=== PATIENT | female | born 1990 | race American Indian/Alaskan Native ===

== ENCOUNTER 2018-09-10 11:18 | Outpatient (CLI) | payer MEDICAID ==
[2018-09-10 12:46] VITALS: BP 135/79
[2018-09-10] MEDS ORDERED: LACTATED RINGERS 500 ML IV ONE (12:59)
[2018-09-10 13:27] LABS: Bacteria,Urine 2+ /HPF (Negative); Bilirubin,Urine NEG (Negative); Blood,Urine NEG (Negative); Color,Urine Amber (Yellow); Mucus,Urine 3+ /HPF; Urobilinogen,Urine < 2.0 mg/dL (<2.0)
[2018-09-10] MEDS ORDERED: ZOFRAN IV ONE (14:44)
== END 2018-09-10 15:31 | disposition home or self-care (01) ==
LOC: EDSTATUS 11:38 → TRG 11:48
PROVIDERS: ATTEND Obstetrics & Gynecology
DX: O36.8120 Decreased fetal movements, second trimester, not applicable or unspecified (principal); O47.02 False labor before 37 completed weeks of gestation, second trimester; O09.212 Supervision of pregnancy with history of pre-term labor, second trimester; O99.512 Diseases of the respiratory system complicating pregnancy, second trimester; J45.909 Unspecified asthma, uncomplicated; O99.342 Other mental disorders complicating pregnancy, second trimester; Z3A.20 20 weeks gestation of pregnancy
CPT/HCPCS: 59025; 81001; 96374; J2405; J7120; 96361; 96365

== ENCOUNTER 2018-11-22 12:09 | Outpatient (CLI) | payer MEDICAID ==
[2018-11-22] MEDS ORDERED: CELESTONE SOLUSPAN IM SCH (13:00)
[2018-11-22 13:11] LABS: Bacteria,Urine 1+ /HPF (Negative); Bilirubin,Urine NEG (Negative); Blood,Urine NEG (Negative); Color,Urine Yellow (Yellow); Mucus,Urine 2+ /HPF; Protein,Urine <15 mg/dL mg/dL (Negative); Urobilinogen,Urine < 2.0 mg/dL (<2.0)
[2018-11-22 13:25] LABS: Hematocrit 38.5 % (30.3-42.9); Hemoglobin 12.9 gm/dl (10.1-14.3); Mean Corpuscular HGB Conc 33 % (30-34); Mean Corpuscular Volume 88 fl (79-97); Platelet Count 244 K/mm3 (140-440); Red Blood Count 4.37 M/mm3 (3.65-5.03); Red Cell Distribution Width 13.4 % (13.2-15.2)
[2018-11-22 13:41] LABS: Uric Acid 3.1 mg/dL (3.5-7.6)
[2018-11-22 13:58] LABS: Alanine Aminotransferase < 5 units/L (7-56)
[2018-11-22 14:44] VITALS: BP 153/89
== END 2018-11-22 15:15 | disposition home or self-care (01) ==
LOC: TRG 12:09
PROVIDERS: ATTEND Obstetrics & Gynecology
DX: O47.03 False labor before 37 completed weeks of gestation, third trimester (principal); O09.213 Supervision of pregnancy with history of pre-term labor, third trimester; O99.513 Diseases of the respiratory system complicating pregnancy, third trimester; J45.909 Unspecified asthma, uncomplicated; Z3A.30 30 weeks gestation of pregnancy
CPT/HCPCS: 36415; 59025; 81001; 82565; 83615; 84450; 84460; 84550; 85027; 96372; J0702

== ENCOUNTER 2019-01-10 11:37 | Inpatient (IN) | payer MEDICAID ==
[2019-01-10] MEDS ORDERED: TERBUTALINE 1 MG/1 ML INJ SUB-Q PRN (13:02)
[2019-01-10] MEDS ORDERED: BUTORPHANOL 2 MG/1 ML INJ IV PRN (13:02)
[2019-01-10] MEDS ORDERED: ePHEDrine SULFATE 50 MG/1 ML INJ IV PRN (13:02)
[2019-01-10] MEDS ORDERED: MINERAL OIL 30 ML ORAL LIQD PO PRN (13:02)
[2019-01-10] MEDS ORDERED: LIDOCAINE (2%) 20 MG/1 ML VIAL 20 ML MDV INFILTRATI ONE (13:02)
[2019-01-10] MEDS ORDERED: DINOPROSTONE 10 MG VAG SUPP VG ONE (13:02)
[2019-01-10] MEDS ORDERED: TERBUTALINE 1 MG/1 ML INJ IVP PRN (13:02)
[2019-01-10 13:26] LABS: Hematocrit 38.7 % (30.3-42.9); Hemoglobin 12.9 gm/dl (10.1-14.3); Mean Corpuscular HGB Conc 33 % (30-34); Mean Corpuscular Volume 89 fl (79-97); Platelet Count 246 K/mm3 (140-440); Red Blood Count 4.35 M/mm3 (3.65-5.03); Red Cell Distribution Width 14.2 % (13.2-15.2)
--- NOTE | 2019-01-10 13:56 | History and Physical Report ---
History of Present Illness Date of examination: 01/10/19 Date of admission: 01/10/19 Chief complaint: IOL for elevated BP History of present illness: This is a 28 yo EDC 01/27/19 at 37 weeks here for IOL recommended by [facility] for IOL on Nov but patient had logistic problems with kids. She came for appt at clinic and was noted to have elevated BP. She has no sx of pree. She has been followed by [facility] for abnormal quad, hx of PTC s/p BMZ in October. She has been incarcerated in this . She was treated with azithro for chlamydia TOV Oct neg. HX of asthma, hx of hsv on valtrex no outbreaks Past History Past Medical History: asthma Past Surgical History: no surgical history REGISTERED DIETITIAN History: chlamydia Family/Genetic History: none Social history: single. denies: smoking, alcohol abuse, prescription drug abuse - Obstetrical History Expected Date of Delivery: 01/27/19 Actual Gestation: 37 Week(s) 4 Day(s) : 5 Para: 3 Hx # Term Pregnancies: 3 Number of Pregnancies: 1 Spontaneous Abortions: 0 Induced : 0 Number of Living Children: 4 Medications and Allergies Allergies Allergy/AdvReac Type Severity Reaction Status Date / Time No Known Allergies Allergy Unverified 09/10/18 12:55 Home Medications Medication Instructions Recorded Confirmed Last Taken Type Multivitamin Tablet 1 tab PO DAILY 01/10/19 01/10/19 01/10/19 08:00 History Procardia 10 mg PO Q8HR 01/10/19 01/10/19 01/10/19 08:00 History Valtrex 500 tab PO BID 01/10/19 01/10/19 01/09/19 22:00 History Active Meds: Active Medications Butorphanol Tartrate (Stadol) 2 mg IV Q2H PRN PRN Reason: Pain , Severe (7-10) Ephedrine Sulfate (Ephedrine Sulfate) 10 mg IV Q2M PRN PRN Reason: Hypotension Fentanyl (Sublimaze) 100 mcg IV Q2H PRN PRN Reason: Labor Pain Oxytocin/Sodium Chloride (Pitocin/Ns 20 Unit/1000ml Drip) 20 units in 1,000 mls @ 125 mls/hr IV DIRECT AMIRA Oxytocin/Sodium Chloride (Pitocin/Ns 30 Unit/500ml) 30 units in 500 mls @ 1 mls/hr IV TITR AMIRA; Protocol Oxytocin/Sodium Chloride (Pitocin/Ns 30 Unit/500ml) 30 units in 500 mls @ 2 mls/hr IV TITR AMIRA; Protocol Lactated Ringer's (Lactated Ringers) 1,000 mls @ 125 mls/hr IV DIRECT AMIRA Mineral Oil (Mineral Oil) 30 ml PO QHS PRN PRN Reason: Constipation Terbutaline Sulfate (Brethine) 0.25 mg SUB-Q ONCE PRN PRN Reason: Hyperstimulation/Hypertonicity Terbutaline Sulfate (Brethine) 0.25 mg IVP ONCE PRN PRN Reason: Hyperstimulation/Hypertonicity Review of Systems All systems: negative - Vital Signs Vital signs: Vital Signs Pulse BP 83 142/101 01/10/19 12:24 01/10/19 12:24 Temp Pulse Resp BP Pulse Ox 81 142/96 01/10/19 12:25 01/10/19 12:25 - Physical Exam Breasts: Positive: normal Cardiovascular: Regular rate, Normal S1 Lungs: Positive: Clear to auscultation, Normal air movement Abdomen: Positive: normal appearance, soft, normal bowel sounds. Negative: distention, tenderness, guarding Genitourinary (Female): Positive: normal external genitalia, normal perenium Vagina: Positive: normal moisture Uterus: Positive: normal size, normal contour Anus/Rectum: Positive: normal perianal skin Extremities: Positive: normal Deep Tendon Reflex Grade: Normal +2 - Obstetrical FHR: category 1 Cervical Dilatation: 1 Cervical Effacement Percentage: 50 station: -3 Uterine Contraction Pattern: Irregular Uterine Tone Measurement Phase: Resting Results Result Diagrams: 01/10/19 12:50 Abnormal lab results 01/10/19 Range/Units 12:50 WBC 11.1 H (4.5-11.0) K/mm3 All other labs normal. Assessment and Plan A/P IUP 37+4 weeks IOL for elevated BP recommneded per High risk IVF, labs ( [facility]H) will start with cervidil for cervical ripening. GBS neg expect vaginal delivery
[2019-01-10] MEDS ORDERED: OXYTOCIN 20 UNIT/1000ML DRIP 20 UNITS/1,000 ML BAG IV SCH (14:00)
[2019-01-10] MEDS ORDERED: OXYTOCIN DRIP 30 UNITS/500 ML BAG IV SCH ×2 (14:00)
[2019-01-10 15:42] LABS: Bilirubin,Urine NEG (Negative); Blood,Urine NEG (Negative); Color,Urine Yellow (Yellow); Mucus,Urine FEW /HPF; Urobilinogen,Urine < 2.0 mg/dL (<2.0)
[2019-01-10 15:56] LABS: Alanine Aminotransferase 15 units/L (7-56)
[2019-01-10] MEDS: LACTATED RINGERS 1,000 ML IV SCH ×2 (19:54→23:42)
[2019-01-10] MEDS: fentaNYL 100 MCG/2 ML INJ IV PRN (19:54)
[2019-01-11] MEDS ORDERED: ONDANSETRON 4 MG/2 ML INJ IV PRN ×2 (04:20→20:40)
[2019-01-11] MEDS: fentaNYL 100 MCG/2 ML INJ IV PRN (04:54)
--- NOTE | 2019-01-11 08:04 | Event Note ---
Date: 01/11/19 Pt uncomfortable with contractions. Category II tracing. SVE: 380/-3. Begin pitocin augmentation. Pt desires epidural. Blood pressures remain in mild range. Continue routine intrapartum care.
[2019-01-11] MEDS ORDERED: ePHEDrine SULFATE 50 MG/1 ML INJ IV PRN ×2 (10:00→10:44)
[2019-01-11] MEDS ORDERED: BUPIVACAINE/PF (0.25%) 2.5 MG/ML 10 ML VIAL INFILTRATI ONE (10:10)
[2019-01-11] MEDS ORDERED: NALOXONE 2 MG/2 ML INJ IV PRN (10:44)
--- NOTE | 2019-01-11 10:44 | Anesthesia Consultation ---
Anesthesia Consult and Med Hx Date of service: 01/11/19 - Airway Anesthetic Teeth Evaluation: Good ROM Head & Neck: Adequate Mental/Hyoid Distance: Adequate Mallampati Class: Class II Intubation Access Assessment: Good - Pulmonary Exam CTA: Yes - Cardiac Exam Cardiac Exam: RRR - Pre-Operative Health Status ASA Pre-Surgery Classification: ASA2, Emergency Proposed Anesthetic Plan: Epidural - Pulmonary Hx Asthma: Yes COPD: No Hx Pneumonia: No - Cardiovascular System Hx Hypertension: Yes (PIH) - Central Nervous System Hx Seizures: No Hx Psychiatric Problems: Yes (Bipolar no meds since preg.) - Endocrine Hx Renal Disease: No Hx End Stage Renal Disease: No Hx Hypothyroidism: No Hx Hyperthyroidism: No - Hematic Hx Anemia: No Hx Sickle Cell Disease: No - Other Systems Hx Alcohol Use: No
[2019-01-11] MEDS: LACTATED RINGERS 1,000 ML IV SCH ×2 (10:52→21:08)
[2019-01-11] MEDS ORDERED: fentaNYL-BUPIV 2 MCG/ML-0.125% 200 MCG/100 ML BAG EPIDURAL SCH (11:00)
--- NOTE | 2019-01-11 12:33 | Event Note ---
Date: 01/11/19 Pt comfortable with epidural. Category II tracing. SVE: /-1. AROM- copious clear then blood tinged fluid. IUPC placed without difficulty. FSE placed without difficulty. Routine intrapartum care.
[2019-01-11] MEDS ORDERED: miSOPROStol 200 MCG TAB ONE (13:08)
--- NOTE | 2019-01-11 13:35 | Procedure Note ---
OB Delivery Note - Delivery Date of Delivery: 01/11/19 Surgeon: KAM FARFAN Estimated blood loss: other (600 mL) - Vaginal Delivery presentation: vertex Delivery position: OA Intrapartum events: PROM->1hr before delivery, gestational hypertension, decreased FHT variability, mult.variable deceleratio, uterine atony Delivery induction: cervidil Delivery augmentation: rupture of membranes, pitocin Delivery monitor: internal FHT, internal uterine Route of delivery: Delivery placenta: spontaneous Delivery cord: 3 umbilical vessels Episiotomy: none Delivery laceration: none Anesthesia: epidural Delivery comments: Pt progressed to complete/complete/+2 and pushed to deliver a viable female over intact perineum via under epidural anesthesia. Head delivered in THOMAS position, quickly followed by shoulders and body. bulb suctioned at delivery and placed on maternal abdomen. Delayed cord clamp. Cord clamped and cut. Cord blood collected. Placenta delivered spontaneously (3VC,intact). Vagina and perineum explored. No lacerations noted. Uterus atonic despite pitocin infusing. Misoprostol 800 mcg per rectum. Moderate clots expressed from vaginal vault. EBL 600 mL. - Infant A at 1 minute: 8 at 5 minutes: 9 Infant Gender: Female (2506g (5lb 8oz) @ 1245 pm)
[2019-01-11] MEDS ORDERED: LACTATED RINGERS 1,000 ML IV SCH (20:00)
[2019-01-11] MEDS ORDERED: MAGNESIUM SULFATE 40GM/1000ML 40 GM/1,000 ML BAG IV SCH (20:30)
[2019-01-11] MEDS ORDERED: MAGNESIUM SULFATE 4 GM/100 ML BAG IV ONE (20:30)
[2019-01-11] MEDS ORDERED: MAGNESIUM HYDROXIDE (MOM) ORAL LIQD UDC PO PRN (20:40)
[2019-01-11] MEDS ORDERED: hydrALAZINE 20 MG/1 ML INJ IV PRN (20:40)
[2019-01-11] MEDS ORDERED: diphenhydrAMINE 25 MG CAP PO PRN (20:40)
[2019-01-11] MEDS ORDERED: PROMETHAZINE 25 MG TAB PO PRN (20:40)
[2019-01-11] MEDS ORDERED: WITCH HAZEL/ GLYCERIN PAD TP PRN (20:40)
[2019-01-11] MEDS ORDERED: ACETAMINOPHEN 325 MG TAB PO PRN (20:40)
[2019-01-11] MEDS ORDERED: HYDROcodone/ACETAMINOPHEN 5-325 MG TAB PO PRN (20:40)
[2019-01-11] MEDS ORDERED: PROMETHAZINE 25 MG RECT SUPP PR PRN (20:40)
[2019-01-11] MEDS ORDERED: CALCIUM GLUCONATE 1000 MG/10 ML INJ IV ONE (20:40)
[2019-01-11] MEDS ORDERED: BENZOCAINE/MENTHOL 20/0.5% TOP SPRAY 56 GM TP PRN (20:40)
[2019-01-11] MEDS ORDERED: LANOLIN/ZINC/DIMETHICONE (LANSINOH) 7 GM TP PRN ×2 (20:40)
--- NOTE | 2019-01-11 20:49 | Event Note ---
Date: 01/11/19 Pt's blood pressures moving into severe range with systolic BP over 160 on multiple occasions. Begin magnesium sulfate for seizure prophylaxis. Continue to monitor clinically.
[2019-01-11] MEDS ORDERED: OXYTOCIN 20 UNIT/1000ML DRIP 20 UNITS/1,000 ML BAG IV SCH (21:00)
[2019-01-11] MEDS: IBUPROFEN 800 MG TAB PO SCH (21:06)
--- NOTE | 2019-01-12 04:56 | Post Anesthesia Evaluation ---
- Post Anesthesia Evaluation Patient Participated: Yes Airway Patent: Yes Stable Respiratory Function: Yes Nausea/Vomiting: No Temp > 96.8F: Yes Pain Manageable: Yes Adequeate Hydration: Yes Anesthesia Complications: No Block Receding Appropriately: Yes Patient on Ventilator: No
[2019-01-12] MEDS ORDERED: TETANUS,DIPH,PERTUSS(ACELL) VACCINE 0.5 ML SYRINGE IM ONE (06:00)
[2019-01-12 07:06] LABS: Hematocrit 36.3 % (30.3-42.9); Hemoglobin 12.1 gm/dl (10.1-14.3); Mean Corpuscular HGB Conc 33 % (30-34); Mean Corpuscular Volume 90 fl (79-97); Red Blood Count 4.04 M/mm3 (3.65-5.03)
[2019-01-12 08:21] LABS: Platelet Count 231 K/mm3 (140-440)
--- NOTE | 2019-01-12 08:21 | Progress Note ---
Assessment and Plan PPD1 s/p Preeclampsia, on Magnesium sulfate Desires to breast feed and room with baby. Coordinate with [facility] team Anticipate d/c to home on PPD3 Subjective - Subjective Date of service: 01/12/19 Principal diagnosis: s/p Interval history: Pt is PPD1 s/p and preeclampsia Patient reports: appetite normal, pain well controlled [place]: bottle feeding (monitoring by [facility] team due to maternal drowsiness overnight. Stable.) Objective - Vital Signs Latest vital signs: Vital Signs Temp Pulse Resp BP BP Pulse Ox 01/12/19 08:14 81 97 01/12/19 08:09 83 97 01/12/19 08:04 76 98 01/12/19 07:59 84 97 01/12/19 07:54 81 97 01/12/19 07:53 97.9 F 85 18 133/82 133/82 97 01/12/19 07:50 72 153/107 01/12/19 07:49 95 H 99 01/12/19 07:48 76 83 L 01/12/19 07:44 88 100 01/12/19 07:39 86 98 01/12/19 07:34 70 100 01/12/19 07:29 78 99 01/12/19 07:24 76 99 01/12/19 07:19 75 100 01/12/19 07:14 74 99 01/12/19 07:09 82 99 01/12/19 07:04 79 99 01/12/19 06:59 79 98 01/12/19 06:54 88 99 01/12/19 06:53 82 177/111 01/12/19 06:33 74 99 01/12/19 06:28 78 100 01/12/19 06:23 83 100 01/12/19 06:18 78 99 01/12/19 06:13 78 100 01/12/19 06:11 72 135/96 01/12/19 06:08 80 100 01/12/19 06:03 92 H 99 01/12/19 05:58 95 H 100 01/12/19 05:53 77 100 01/12/19 05:48 77 100 01/12/19 05:43 85 100 01/12/19 05:42 80 138/93 01/12/19 05:38 79 99 01/12/19 05:33 87 98 01/12/19 05:28 87 98 01/12/19 05:23 90 98 01/12/19 05:18 87 99 01/12/19 05:13 85 99 01/12/19 05:11 75 136/92 01/12/19 05:08 72 100 01/12/19 05:03 75 96 01/12/19 05:00 94 H 90 01/12/19 04:58 77 100 01/12/19 04:53 79 100 01/12/19 04:48 102 H 100 01/12/19 04:43 69 99 01/12/19 04:41 75 166/103 01/12/19 04:38 70 99 01/12/19 04:33 64 99 01/12/19 04:28 73 98 01/12/19 04:23 73 99 01/12/19 04:18 75 100 01/12/19 04:13 76 99 01/12/19 04:11 75 129/76 01/12/19 04:08 70 100 01/12/19 04:03 77 100 01/12/19 04:00 98 F 01/12/19 03:58 71 98 01/12/19 03:53 71 99 01/12/19 03:48 66 99 01/12/19 03:43 65 99 01/12/19 03:41 75 147/80 01/12/19 03:38 67 99 01/12/19 03:33 82 100 01/12/19 03:28 69 99 01/12/19 03:23 69 100 01/12/19 03:18 68 100 01/12/19 03:13 71 99 01/12/19 03:11 66 128/80 01/12/19 03:08 68 100 01/12/19 03:03 69 100 01/12/19 02:58 68 98 01/12/19 02:53 75 99 01/12/19 02:48 72 99 01/12/19 02:43 85 100 01/12/19 02:41 85 157/97 01/12/19 02:38 76 100 01/12/19 02:33 73 100 01/12/19 02:28 78 98 01/12/19 02:23 77 100 01/12/19 02:18 72 99 01/12/19 02:13 70 99 01/12/19 02:11 65 136/88 11/13/19 02:08 84 98 01/12/19 02:03 72 100 01/12/19 01:58 78 100 01/12/19 01:53 69 99 01/12/19 01:48 82 97 01/12/19 01:43 76 99 01/12/19 01:41 71 148/97 01/12/19 01:38 73 98 01/12/19 01:33 73 99 01/12/19 01:28 68 98 01/12/19 01:23 76 99 01/12/19 01:18 69 98 01/12/19 01:13 71 99 01/12/19 01:11 76 157/97 01/12/19 01:08 68 99 01/12/19 01:03 74 97 01/12/19 00:58 68 98 01/12/19 00:53 72 98 01/12/19 00:48 73 98 01/12/19 00:43 82 100 01/12/19 00:41 76 134/77 01/12/19 00:38 75 98 01/12/19 00:33 75 99 01/12/19 00:28 78 100 01/12/19 00:27 92 H 91 01/12/19 00:23 84 100 01/12/19 00:18 74 99 01/12/19 00:13 81 100 01/12/19 00:10 74 134/84 89 01/12/19 00:08 79 99 01/12/19 00:03 79 98 01/11/19 23:58 74 99 01/11/19 23:53 78 98 01/11/19 23:48 97 H 98 01/11/19 23:43 75 136/82 98 01/11/19 23:38 83 98 01/11/19 23:33 86 98 01/11/19 23:28 77 98 01/11/19 23:23 84 98 01/11/19 23:18 82 98 01/11/19 23:13 81 136/75 98 01/11/19 23:08 84 97 01/11/19 22:58 88 98 01/11/19 22:53 83 98 01/11/19 22:48 94 H 99 01/11/19 22:43 81 138/87 99 01/11/19 22:38 80 99 01/11/19 22:33 83 98 11/12/19 22:28 80 99 01/11/19 22:23 83 98 01/11/19 22:18 88 98 01/11/19 22:13 85 143/86 97 01/11/19 22:08 88 98 01/11/19 22:03 86 98 01/11/19 21:58 91 H 99 01/11/19 21:53 94 H 98 01/11/19 21:48 91 H 98 01/11/19 21:43 92 H 146/80 99 01/11/19 21:38 92 H 98 01/11/19 21:33 91 H 98 01/11/19 21:28 93 H 98 01/11/19 21:23 86 98 01/11/19 21:18 89 98 01/11/19 21:13 83 177/92 98 01/11/19 21:08 104 H 99 01/11/19 21:06 18 01/11/19 21:03 83 99 01/11/19 20:58 77 99 01/11/19 20:53 98 H 99 01/11/19 20:43 86 133/68 01/11/19 20:42 100 H 98 01/11/19 20:37 97 H 97 01/11/19 20:32 88 98 01/11/19 20:27 84 98 01/11/19 20:22 92 H 98 01/11/19 20:17 91 H 98 01/11/19 19:43 89 150/83 98 01/11/19 19:38 86 99 01/11/19 19:33 91 H 99 01/11/19 19:28 94 H 99 01/11/19 19:23 96 H 98 01/11/19 19:18 93 H 99 01/11/19 19:17 86 162/95 01/11/19 19:15 99.3 F 18 01/11/19 19:13 85 159/102 99 01/11/19 19:08 93 H 99 01/11/19 19:03 94 H 99 01/11/19 18:49 89 99 01/11/19 18:44 84 99 01/11/19 18:39 91 H 98 01/11/19 18:34 99 H 95 01/11/19 18:29 90 96 01/11/19 18:24 78 98 01/11/19 18:19 91 H 97 01/11/19 18:17 76 142/89 01/11/19 18:14 85 138/90 93 01/11/19 18:13 89 86 01/11/19 17:33 83 99 01/11/19 17:27 80 98 01/11/19 14:59 81 146/77 01/11/19 14:58 93 H 149/78 01/11/19 14:55 78 141/85 01/11/19 14:29 94 H 149/91 01/11/19 14:14 83 154/93 01/11/19 13:59 87 151/96 01/11/19 13:54 80 144/93 01/11/19 13:45 88 151/95 01/11/19 13:41 85 169/113 01/11/19 13:30 91 H 150/87 01/11/19 13:11 95 H 146/96 01/11/19 13:09 90 146/90 01/11/19 13:08 90 146/86 01/11/19 13:06 91 H 143/91 01/11/19 13:03 97 H 148/93 01/11/19 13:02 83 142/88 01/11/19 13:00 92 H 148/88 01/11/19 12:58 82 157/86 01/11/19 12:56 83 145/84 01/11/19 12:54 84 146/79 01/11/19 12:52 86 160/86 01/11/19 12:50 100 H 155/80 01/11/19 12:47 107 H 196/89 01/11/19 12:46 121 H 192/110 01/11/19 12:44 94 H 156/102 01/11/19 12:42 102 H 151/106 97 01/11/19 12:39 85 164/105 01/11/19 12:38 81 161/106 01/11/19 12:37 80 98 01/11/19 12:36 91 H 157/98 01/11/19 12:33 81 165/100 01/11/19 12:32 94 H 155/94 96 01/11/19 12:30 81 163/92 01/11/19 12:28 96 H 169/91 01/11/19 12:27 83 97 01/11/19 12:26 86 166/79 01/11/19 12:24 79 144/76 01/11/19 12:22 94 H 157/97 97 01/11/19 12:20 76 159/95 01/11/19 12:17 80 96 01/11/19 12:16 86 176/110 01/11/19 12:14 88 172/108 01/11/19 12:12 90 166/101 98 01/11/19 12:10 91 H 170/103 01/11/19 12:08 81 168/96 01/11/19 12:07 81 97 01/11/19 12:06 90 159/96 01/11/19 12:04 83 154/98 01/11/19 12:02 71 98 01/11/19 12:01 80 151/94 01/11/19 12:00 73 147/91 01/11/19 11:58 88 153/104 01/11/19 11:57 78 97 01/11/19 11:56 76 162/100 01/11/19 11:54 79 157/95 01/11/19 11:53 70 94 01/11/19 11:52 81 154/93 97 01/11/19 11:50 74 152/92 01/11/19 11:48 74 154/96 01/11/19 11:46 85 154/94 97 01/11/19 11:44 82 157/99 01/11/19 11:42 68 152/94 01/11/19 11:41 74 96 01/11/19 11:40 79 149/93 01/11/19 11:38 73 150/98 01/11/19 11:36 74 98 01/11/19 11:35 70 147/92 01/11/19 11:34 69 142/88 01/11/19 11:32 68 140/84 01/11/19 11:31 72 97 01/11/19 11:30 74 151/93 01/11/19 11:28 82 147/92 01/11/19 11:26 68 151/96 98 01/11/19 11:24 82 142/87 01/11/19 11:22 75 151/105 01/11/19 11:21 79 98 01/11/19 11:19 76 154/103 01/11/19 11:18 82 151/102 01/11/19 11:16 78 150/98 97 01/11/19 11:14 72 159/108 01/11/19 11:12 79 161/106 01/11/19 11:11 79 97 01/11/19 11:09 73 151/98 01/11/19 11:08 75 154/101 01/11/19 11:06 76 149/95 98 01/11/19 11:04 77 152/97 01/11/19 11:02 81 150/90 01/11/19 11:01 73 99 01/11/19 10:58 80 162/95 01/11/19 10:56 76 157/93 98 01/11/19 10:54 88 168/101 01/11/19 10:51 88 158/91 98 01/11/19 10:50 78 154/92 01/11/19 10:48 84 146/93 01/11/19 10:46 76 178/102 99 01/11/19 10:44 89 173/95 01/11/19 10:42 97 H 170/95 01/11/19 10:41 91 H 98 01/11/19 10:40 87 170/92 01/11/19 10:37 86 173/105 01/11/19 10:36 85 165/108 98 01/11/19 10:35 102 H 93 01/11/19 10:34 90 160/101 01/11/19 10:32 92 H 157/99 01/11/19 10:30 98 H 98 01/11/19 10:28 96 H 167/109 01/11/19 10:26 98 H 171/107 01/11/19 10:25 103 H 99 01/11/19 10:20 97 H 99 01/11/19 10:16 88 171/107 01/11/19 10:15 92 H 98 01/11/19 10:08 83 97 01/11/19 10:03 74 98 01/11/19 09:58 76 98 01/11/19 09:53 79 98 01/11/19 09:48 74 98 01/11/19 09:43 79 97 01/11/19 09:38 81 98 01/11/19 09:18 97.8 F 01/11/19 09:11 90 141/83 01/11/19 08:31 76 99 01/11/19 08:26 77 97 01/11/19 08:21 80 98 01/11/19 08:20 72 150/90 01/11/19 08:19 80 172/91 93 Intake and Output 01/11/19 01/12/19 01/12/19 23:59 07:59 15:59 Output Total 2450 3698 Balance -2450 -3698 Output: Urine 2450 3698 Indwelling Catheter 2450 3698 Other: Total, Output Amount 1000 550 # Voids Void 1 # Bowel Movements 1 - Exam Lungs: Present: Normal air movement Abdomen: Present: normal appearance, soft Uterus: Present: firm, fundal height below umbilicus Extremities: Present: normal - Labs Labs: Abnormal lab results 01/12/19 Range/Units 06:28 WBC 12.7 H (4.5-11.0) K/mm3
[2019-01-12] MEDS: IBUPROFEN 800 MG TAB PO SCH (08:23)
[2019-01-12] MEDS: LACTATED RINGERS 1,000 ML IV SCH (09:56)
[2019-01-12] MEDS: PRENATAL VIT27-FE FUMARATE-FOLIC ACID VIT TAB PO SCH (09:56)
[2019-01-12] MEDS ORDERED: BENZOCAINE/MENTHOL 20/0.5% TOP SPRAY 56 GM TP PRN (14:07)
[2019-01-12] MEDS ORDERED: WITCH HAZEL/ GLYCERIN PAD TP PRN (14:07)
[2019-01-12] MEDS ORDERED: PROMETHAZINE 25 MG TAB PO PRN (14:07)
[2019-01-12] MEDS ORDERED: HYDROcodone/ACETAMINOPHEN 5-325 MG TAB PO PRN (14:07)
[2019-01-12] MEDS ORDERED: PROMETHAZINE 25 MG RECT SUPP PR PRN (14:07)
[2019-01-12] MEDS ORDERED: OXYTOCIN 20 UNIT/1000ML DRIP 20 UNITS/1,000 ML BAG IV SCH (14:07)
[2019-01-12] MEDS ORDERED: diphenhydrAMINE 25 MG CAP PO PRN (14:07)
[2019-01-12] MEDS ORDERED: ONDANSETRON 4 MG/2 ML INJ IV PRN (14:07)
[2019-01-12] MEDS ORDERED: ACETAMINOPHEN 325 MG TAB PO PRN (14:07)
[2019-01-12] MEDS ORDERED: MAGNESIUM HYDROXIDE (MOM) ORAL LIQD UDC PO PRN (14:07)
[2019-01-12] MEDS ORDERED: LANOLIN/ZINC/DIMETHICONE (LANSINOH) 7 GM TP PRN ×2 (14:07)
[2019-01-12 15:09] LABS: Hematocrit 35.4 % (30.3-42.9); Hemoglobin 11.9 gm/dl (10.1-14.3)
[2019-01-12] MEDS: FERROUS SULFATE 325 MG TAB PO SCH ×2 (17:45→21:03)
[2019-01-12] MEDS ORDERED: MEASLES, MUMPS & RUBELLA 12,500 UNIT/0.5 ML VACCINE SUB-Q ONE (20:40)
[2019-01-13] MEDS: IBUPROFEN 600 MG TAB PO SCH ×4 (03:45→17:19)
[2019-01-13] MEDS ORDERED: TETANUS,DIPH,PERTUSS(ACELL) VACCINE 0.5 ML SYRINGE IM ONE (06:00)
--- NOTE | 2019-01-13 08:26 | Progress Note ---
Assessment and Plan PPD2 s/p Preeclampsia, s/p Magnesium sulfate Vital signs now stable Anticipate d/c to home on PPD3 Subjective - Subjective Date of service: 01/13/19 Principal diagnosis: s/p Interval history: Pt is PPD2 s/p and preeclampsia Patient reports: appetite normal, voiding normally, pain well controlled, ambulating normally [place]: doing well, bottle feeding Objective - Vital Signs Latest vital signs: Vital Signs Temp Pulse Resp BP BP Pulse Ox 01/13/19 04:00 98.7 F 77 18 119/78 01/13/19 00:00 98.7 F 78 18 112/78 01/12/19 17:08 149/106 01/12/19 15:50 98.7 F 88 20 145/104 01/12/19 13:36 87 99 01/12/19 13:03 92 H 18 134/88 98 01/12/19 13:02 85 134/88 98 01/12/19 11:53 93 H 138/95 01/12/19 10:53 78 121/76 01/12/19 09:59 78 100 01/12/19 09:54 84 99 01/12/19 09:53 84 160/102 01/12/19 09:49 85 98 01/12/19 09:44 83 98 01/12/19 09:39 80 98 01/12/19 09:34 89 96 01/12/19 09:29 83 98 01/12/19 09:24 87 98 01/12/19 09:19 85 97 01/12/19 09:14 86 98 01/12/19 09:09 79 99 01/12/19 09:04 84 98 01/12/19 08:59 75 98 01/12/19 08:54 76 99 01/12/19 08:53 76 148/95 01/12/19 08:49 72 98 01/12/19 08:44 81 99 01/12/19 08:39 75 99 01/12/19 08:34 69 98 01/12/19 08:29 76 96 Intake and Output 01/12/19 01/13/19 01/13/19 23:59 07:59 15:59 Intake Total 200 Balance 200 Intake: Oral 200 Other: Total, Intake Amount 200 # Voids Void 1 1 - Exam Lungs: Present: Normal air movement Abdomen: Present: normal appearance, soft Uterus: Present: normal, firm, fundal height below umbilicus Extremities: Present: normal - Labs Labs: Abnormal lab results 01/12/19 01/12/19 01/12/19 Range/Units 06:28 08:39 14:40 Magnesium 4.80 H 5.10 H 4.00 H (1.7-2.3) mg/dL 01/12/19 Range/Units 21:37 Magnesium 3.10 H (1.7-2.3) mg/dL
[2019-01-13] MEDS: PRENATAL VIT27-FE FUMARATE-FOLIC ACID VIT TAB PO SCH (10:00)
[2019-01-13] MEDS: FERROUS SULFATE 325 MG TAB PO SCH (10:00)
[2019-01-14] MEDS: IBUPROFEN 600 MG TAB PO SCH (05:48)
[2019-01-14] MEDS: FERROUS SULFATE 325 MG TAB PO SCH (10:00)
[2019-01-14] MEDS: PRENATAL VIT27-FE FUMARATE-FOLIC ACID VIT TAB PO SCH (10:00)
--- NOTE | 2019-01-14 14:16 | Progress Note ---
Assessment and Plan A/P POD1 s/p pree and mag on labetolol 400 bid VSS BP normal f/u on Thursday. Subjective - Subjective Date of service: 01/14/19 Principal diagnosis: s/p Interval history: This is a 28 yo EDC 01/27/19 at 37 weeks here for IOL recommended by [facility] for IOL on Nov but patient had logistic problems with kids. She came for appt at clinic and was noted to have elevated BP. She has no sx of pree. She has been followed by [facility] for abnormal quad, hx of PTC s/p BMZ in October. She has been incarcerated in this . She was treated with azithro for chlamydia TOV Oct neg. HX of asthma, hx of hsv on valtrex no outbreaks Patient reports: appetite normal, voiding normally, pain well controlled, flatus, ambulating normally [place]: doing well Objective - Vital Signs Latest vital signs: Vital Signs Temp Pulse Resp BP BP BP Pulse Ox 01/14/19 14:03 124/70 117/79 01/14/19 12:16 80 18 146/96 01/14/19 08:03 97.3 F L 77 18 129/83 01/14/19 01:32 98.5 F 78 20 128/89 100 01/13/19 21:45 73 123/85 01/13/19 21:17 98.5 F 76 20 123/84 97 01/13/19 16:20 97.7 F 72 18 126/86 Intake and Output 01/13/19 01/14/19 01/14/19 23:59 07:59 15:59 Intake Total 480 480 480 Balance 480 480 480 Intake: Oral 480 120 480 Intake, Free Water 360 Other: Total, Intake Amount 480 120 480 # Voids Void 2 - Exam Breasts: Present: normal Cardiovascular: Present: Regular rate, Normal S1, Other Lungs: Present: Clear to auscultation, Normal air movement Abdomen: Present: normal appearance, soft, normal bowel sounds. Absent: distention, tenderness, guarding Vulva: both: normal Uterus: Present: normal, firm, fundal height below umbilicus. Absent: bogginess, tenderness Extremities: Present: normal Incision: Present: normal, dry, intact
--- NOTE | 2019-01-14 14:18 | Discharge Summary ---
Providers - Providers Date of Admission: 01/11/19 09:30 Date of discharge: 01/14/19 Attending physician: MAEVE LIGHT MD Primary care physician: MAEVE LIGHT MD Hospitalization Reason for admission: IUP at term Delivery: Episiotomy: none Laceration: none Incision: normal Other procedures: none Discharge diagnosis: IUP at term delivered [place] baby: female Hospital course: [place] had a IOL and delivered . Did well andplaced on labetolol with good BP control. [place] to f/u with BP check on thursday Condition at discharge: Good Disposition: DC- TO HOME OR SELFCARE Plan - Discharge Medications Prescriptions: Ferrous Sulfate [Ferrous Sulfate 324 MG] 324 mg PO BID #60 tablet. labetaloL [Labetalol 200mg TAB] 200 mg PO BID #60 tablet Ibuprofen [Motrin] 800 mg PO Q8HR PRN #30 tablet PRN Reason: Pain, Moderate (4-6) HYDROcodone/APAP 5-325 [[place] 5/325] 1 each PO Q6HR PRN #20 tablet PRN Reason: Pain HYDROcodone/APAP 5-325 [[place] 5/325] 1 each PO Q6HR PRN #20 tablet PRN Reason: Pain - Provider Discharge Summary Additional instructions: [] Smoking cessation referral if applicable(refer to patient education folder for contact #) [] Refer to [employer] Booklet Call your doctor immediately for: * Fever > 100.5 * Heavy vaginal bleeding ( >1 pad per hour) * Severe persistent headache * Shortness of breath * Reddened, hot, painful area to leg or breast * Drainage or odor from incision. * Keep incision clean and dry at all times and follow doctor's instructions regarding bathing/showering - Follow up plan Follow up: MAEVE LIGHT MD [Primary Care Provider] - 7 Days Forms: [facility] Discharge Summary
[2019-01-14 15:58] VITALS: BP 134/90
== END 2019-01-14 15:00 | disposition home or self-care (01) | DRG 775 ==
LOC: TRG 11:37 → LD 11:38 → TRG 01-11 09:27 → LD 01-11 09:30 → OB 01-12 13:31
PROVIDERS: ADMIT Obstetrics & Gynecology; ATTEND Obstetrics & Gynecology
PROC: 10E0XZZ Delivery of Products of Conception, External Approach (ICD-10-PCS; principal; 2019-01-11)
PROC: 10H07YZ Insertion of Other Device into Products of Conception, Via Natural or Artificial Opening (ICD-10-PCS; 2019-01-11)
PROC: 3E0P7VZ Introduction of Hormone into Female Reproductive, Via Natural or Artificial Opening (ICD-10-PCS; 2019-01-11)
PROC: 3E0R3BZ Introduction of Anesthetic Agent into Spinal Canal, Percutaneous Approach (ICD-10-PCS; 2019-01-11)
PROC: 00HU33Z Insertion of Infusion Device into Spinal Canal, Percutaneous Approach (ICD-10-PCS; 2019-01-11)
PROC: 3E0234Z Introduction of Serum, Toxoid and Vaccine into Muscle, Percutaneous Approach (ICD-10-PCS; 2019-01-12)
DX: O13.4 Gestational [pregnancy-induced] hypertension without significant proteinuria, complicating childbirth (principal); Z3A.37 37 weeks gestation of pregnancy; Z37.0 Single live birth; Z23 Encounter for immunization; O99.52 Diseases of the respiratory system complicating childbirth; O14.94 Unspecified pre-eclampsia, complicating childbirth; J45.909 Unspecified asthma, uncomplicated; O42.12 Full-term premature rupture of membranes, onset of labor more than 24 hours following rupture; O76 Abnormality in fetal heart rate and rhythm complicating labor and delivery; O62.2 Other uterine inertia
CPT/HCPCS: 36415; 59200; 81001; 82565; 83615; 83735; 84450; 84460; 84550; 85014; 85018; 85027; 86592; 86850; 86900; 86901; 88307; 90707; G0378; J0360; J0595; J2405; J2590; J3010; J3475; J7120